=== PATIENT | female | born 2000 | race Caucasian/White ===

== ENCOUNTER → 2022-07-20 10:47 | Outpatient (CLI) | payer BC, SELFPAY ==
--- NOTE | 2022-07-20 11:01 | XR_ITS ---
FINAL REPORT CLINICAL HISTORY: RT KNEE PAIN..SHIELDED SURGERY 2014 FINDINGS: Three views of the right knee reveal no evidence of fracture or dislocation. Postoperative changes are present. The bony alignment is normal. The joint spaces are preserved. There is no evidence of joint effusion. No localized soft tissue abnormality is identified. IMPRESSION: No acute abnormality identified. Reviewed, Interpreted and Dictated by Misha Munson III, MD Transcribed by Saul Lemos Authenticated and [facility]
== END ==
PROVIDERS: PCP Nurse Practitioner Family; Visit Provider Nurse Practitioner Family
DX: M25.561 Pain in right knee (principal)
CPT/HCPCS: 73562

== ENCOUNTER → 2022-09-01 11:50 | Outpatient (CLI) | payer BC, SELFPAY ==
[2022-09-01 16:18] LABS: HCG,Quantitative 1428 mIU/ml (0-5.42)
[2022-09-03 12:10] LABS: Progesterone 14.4 ng/mL (.)
== END ==
PROVIDERS: PCP Nurse Practitioner Family; Visit Provider Obstetrics & Gynecology
DX: Z34.90 Encounter for supervision of normal pregnancy, unspecified, unspecified trimester (principal)
CPT/HCPCS: 36415; 84144; 84702

== ENCOUNTER 2022-09-15 17:30 | Outpatient (RCR) | payer BC, SELFPAY | END 2022-09-15 17:35 | disposition home or self-care (01) | LOC: PT 17:30 | PROVIDERS: PCP Nurse Practitioner Family; Visit Provider Nurse Practitioner Family | DX: M25.561 Pain in right knee (principal) | CPT/HCPCS: 97010; 97014; 97016; 97110; 97140; 97163; 97164; 97530; 97760; G0283 ==

== ENCOUNTER → 2022-09-27 15:15 | Outpatient (CLI) | payer BC, SELFPAY | PROVIDERS: Visit Provider Obstetrics & Gynecology | DX: Z34.91 Encounter for supervision of normal pregnancy, unspecified, first trimester (principal); Z3A.09 9 weeks gestation of pregnancy | CPT/HCPCS: 87086 ==

== ENCOUNTER → 2022-09-28 08:07 | Outpatient (CLI) | payer BC, SELFPAY ==
--- NOTE | 2022-09-28 08:11 | MR_ITS ---
FINAL REPORT CLINICAL HISTORY: PAIN OF RIGHT KNEE JOINT prior surgery in 2015. FINDINGS: Multi planar MR imaging was performed of the right knee. There is degradation of overall image quality secondary to extensive magnetic artifact from metallic instrumentation in the proximal tibia and distal femur. The anterior and posterior cruciate ligaments are intact. The quadriceps and patellar tendons are intact. The medial and lateral menisci are intact without evidence of tear. The medial and lateral collateral ligaments appear intact. The medial and lateral retinacula appear intact. There is narrowing of the patellofemoral joint space with degenerative subchondral cysts in the patella and the anterior aspect of the lateral femoral condyle compatible with moderate osteoarthritic change. No evidence of soft tissue inflammatory reaction. IMPRESSION: Significant artifact in the proximal tibia and distal femur from implanted metallic instrumentation. Narrowing of the patellofemoral joint space with degenerative subchondral cysts in the patella as well as the anterior aspect of the lateral femoral condyle. These findings are compatible with moderate osteoarthritis of the patellofemoral joint. Reviewed, Interpreted and Dictated by Ramu Higgins MD Transcribed by Ignacia Dominguez Authenticated and . [facility]
[2022-09-28 10:15] LABS: Basophils % 0.2 % (0.1-2.0); Eosinophils # 0.1 K/mm3 (0.0-0.4); Eosinophils % 0.7 % (0.1-12.0); Hematocrit 37.5 % (37.0-47.0); Hemoglobin 12.9 g/dL (12.2-16.2); Lymphocytes # 1.9 K/mm3 (0.7-4.5); Lymphocytes % 24.1 % (10-50); Mean Corpuscular HGB Conc 34.3 g/dL (31.8-35.4); Mean Corpuscular Hemoglobin 30.4 pg (27.0-31.2); Mean Corpuscular Volume 88.8 fl (81-99); Mean Platelet Volume 8.2 fl (7.4-10.4); Monocytes # 0.3 K/mm3 (0.1-1.0); Monocytes % 3.4 % (1.7-9.3); Neutrophils # 5.6 K/mm3 (1.8-7.8); Neutrophils % 71.6 % (37.0-80.0); Platelet Count 213 K/mm3 (142-424); Red Blood Count 4.23 M/mm3 (4.20-5.40); Red Cell Distribution Width 13.3 % (11.5-17.5); White Blood Count 7.8 K/mm3 (4.8-10.8)
[2022-09-29 11:55] LABS: Rapid Plasma Reagin Ab Titer Non Reactive (NonRea<1:1); Rubella Antibodies, IgG 9.81 index (Immune >0.99)
[2022-10-27 23:40] LABS: HIV Screen 4th Generation wRfx Non Reactive; Hepatitis B Surface Antigen Negative; Hepatitis C Antibody Non Reactive
== END ==
PROVIDERS: Obstetrics & Gynecology; PCP Nurse Practitioner Family; Visit Provider Nurse Practitioner Family
DX: Z34.91 Encounter for supervision of normal pregnancy, unspecified, first trimester (principal); Z3A.09 9 weeks gestation of pregnancy; M25.561 Pain in right knee
CPT/HCPCS: 36415; 73721; 85025; 86593; 86703; 86762; 86850; 87340; 87380; G0432

== ENCOUNTER 2022-12-10 10:44 | Outpatient (RCR) | payer BC, SELFPAY | END 2022-12-10 10:50 | disposition home or self-care (01) | LOC: PT 10:44 | PROVIDERS: PCP Nurse Practitioner Family; Visit Provider Nurse Practitioner Family | DX: M25.561 Pain in right knee (principal) | CPT/HCPCS: 97110; 97140; 97163 ==

== ENCOUNTER → 2022-12-16 13:57 | Outpatient (CLI) | payer BC, SELFPAY ==
--- NOTE | 2022-12-16 13:57 | US_ITS ---
PROCEDURE: US OB /MATERNAL DETAIL CLINICAL INDICATION: 20 week anatomy scan COMPARISON: No exams were available for comparison FINDINGS: Transabdominal sonographic images of the uterus were obtained. From her established due date she is 20 weeks 1 day. Single viable intrauterine gestation. Cephalic position. Placenta: Anteriorplacenta grade 1. There is average amount fluid. The cervix appears satisfactory. Closed and measuring 3.5 cm in length. Complete survey performed and was unremarkable on the submitted images as in PACS. No discrete anomalies identified on survey imaging by technologist. Active fetus. Three-vessel cord with satisfactory umbilical cord insertion. 4- chamber heart noted. [place], LVOT, RVOT, aortic arch appear normal. Survey of brain & ventricles Unremarkable. Cerebellum, thalamus, choroid plexus, cisterna magna appear normal. Face and neck survey unremarkable. Profile, nasion, lips and nose appeared normal. Diaphragm and chest views unremarkable. Abdomen: Both kidneys noted and unremarkable. Stomach and bladder noted and satisfactory. Spine: Survey of the spine satisfactory with no anomalies identified nor imaged. Upper, thoracic, lower spine appear normal. Both arms and legs noted. Amniotic Fluid: Adequate. Measurements: Average ultrasound age 20weeks 2days. Estimated due date by ultrasound age 0105/03/2023. Estimated weight 344g BPD = 20weeks 1day HC = 20weeks 2days AC = 20weeks 1day FL = 20weeks 4days Growth Percentile= 53 Heart Rate = 146bpm Cerebellum = 19weeks 4days Humerus = 21weeks 1day HC/AC is 1.2 FL/BPD is 0.72 FL/AC is 0.23 IMPRESSION: 1. Viable fetus in the cephalic presentation with an anterior placenta grade 1. 2. The fluid is within normal limits. 3. Anatomical scan appears normal. 4. Size and dates are congruent. Dictated by: Jaron Lee MD 12/16/2022 19:37 Jaron Lee MD in [place] 12/16/2022 19:37
== END ==
PROVIDERS: PCP Nurse Practitioner Family; Visit Provider Obstetrics & Gynecology
DX: Z34.92 Encounter for supervision of normal pregnancy, unspecified, second trimester (principal); Z3A.20 20 weeks gestation of pregnancy
CPT/HCPCS: 76811

== ENCOUNTER → 2023-01-27 08:11 | Outpatient (CLI) | payer BC, SELFPAY ==
[2023-01-27 08:31] LABS: Basophils % 0.3 % (0.1-2.0); Eosinophils % 0.7 % (0.1-12.0); Hematocrit 31.9 % (37.0-47.0); Hemoglobin 11.6 g/dL (12.2-16.2); Lymphocytes # 1.5 K/mm3 (0.7-4.5); Lymphocytes % 24.7 % (10-50); Mean Corpuscular HGB Conc 36.4 g/dL (31.8-35.4); Mean Corpuscular Hemoglobin 33.8 pg (27.0-31.2); Mean Platelet Volume 8.8 fl (7.4-10.4); Monocytes # 0.2 K/mm3 (0.1-1.0); Monocytes % 3.7 % (1.7-9.3); Neutrophils # 4.2 K/mm3 (1.8-7.8); Neutrophils % 70.5 % (37.0-80.0); Platelet Count 181 K/mm3 (142-424); Red Blood Count 3.43 M/mm3 (4.20-5.40); Red Cell Distribution Width 12.6 % (11.5-17.5)
[2023-01-27 08:52] LABS: Glucose,Fasting 82 mg/dl (74-100)
[2023-01-27 10:33] LABS: Glucose 1 Hour 363 mg/dL (74-100)
== END ==
PROVIDERS: PCP Nurse Practitioner Family; Visit Provider Obstetrics & Gynecology
DX: Z34.92 Encounter for supervision of normal pregnancy, unspecified, second trimester (principal); Z3A.26 26 weeks gestation of pregnancy
CPT/HCPCS: 36415; 82951; 85025

== ENCOUNTER → 2023-01-31 08:33 | Outpatient (CLI) | payer BC, SELFPAY | PROVIDERS: PCP Nurse Practitioner Family; Visit Provider Obstetrics & Gynecology | DX: Z34.92 Encounter for supervision of normal pregnancy, unspecified, second trimester (principal); Z3A.26 26 weeks gestation of pregnancy | CPT/HCPCS: 36415 ==

== ENCOUNTER → 2023-04-08 18:34 | Outpatient (CLI) | payer BC, SELFPAY | LOC: LAB.DROPOF 18:35 | PROVIDERS: PCP Nurse Practitioner Family; Visit Provider Obstetrics & Gynecology | DX: Z34.93 Encounter for supervision of normal pregnancy, unspecified, third trimester (principal); Z3A.36 36 weeks gestation of pregnancy | CPT/HCPCS: 86403 ==

== ENCOUNTER 2023-04-27 06:49 | Inpatient (IN) | payer BC, SELFPAY ==
[2023-04-27 06:18] VITALS: BMI 29.0
[2023-04-27 06:27] LABS: Microscopic, Urine URINE MICROSCOPIC (MICROSCOPIC)
[2023-04-27 06:30] LABS: Appearance,Urine CLEAR (Clear); Bilirubin,Urine Negative (Negative); Blood, Urine Negative (Negative); Color,Urine YELLOW (Yellow); Glucose,Urine (UA) Negative (Negative); Ketones,Urine Negative (Negative); Leukocyte Esterase,Urine Negative (Negative); Nitrate,Urine Negative (Negative); PH,Urine 6.5 (5.0-8.5); Protein,Urine Negative (Negative); Specific Gravity, Urine 1.015 (1.005-1.030); Urobilinogen,Urine 0.2 EU/dl (0.2)
[2023-04-27 06:56] LABS: Basophils # 0.1 K/mm3 (0-0.2); Basophils % 0.5 % (0.1-2.0); Eosinophils # 0.1 K/mm3 (0.0-0.4); Hematocrit 37.3 % (37.0-47.0); Hemoglobin 12.7 g/dL (12.2-16.2); Lymphocytes # 2.8 K/mm3 (0.7-4.5); Lymphocytes % 29.4 % (10-50); Mean Corpuscular HGB Conc 34.1 g/dL (31.8-35.4); Mean Corpuscular Hemoglobin 30.4 pg (27.0-31.2); Mean Corpuscular Volume 89.2 fl (81-99); Monocytes # 0.5 K/mm3 (0.1-1.0); Monocytes % 4.7 % (1.7-9.3); Neutrophils # 6.2 K/mm3 (1.8-7.8); Neutrophils % 64.6 % (37.0-80.0); Platelet Count 253 K/mm3 (142-424); Red Blood Count 4.18 M/mm3 (4.20-5.40); Red Cell Distribution Width 13.5 % (11.5-17.5); White Blood Count 9.7 K/mm3 (4.8-10.8)
[2023-04-27] MEDS: LACTATED RINGERS 1000ML 1,000 ML 999 ML IV (07:01)
[2023-04-27 07:14] LABS: Bacteria,Urine 1+ /lpf; Mucus,Urine Trace /lpf; RBC,Urine Occasional #/hpf (0-3)
--- NOTE | 2023-04-27 07:21 | P.CONPHA_ITS ---
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 -TANYA PARRAD
--- NOTE | 2023-04-27 07:21 | HMH.PHAINT1 ---
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 -TANYA PARRAD
[2023-04-27 07:23] VITALS: BP 144/84; PULSE 90; RESP 18; TEMP 36.7; O2SAT 100; BMI 29.0
--- NOTE | 2023-04-27 07:48 | P.PNANES_ITS ---
[facility] Disclaimer: The information contained in this section may have been updated after the patient was seen, as this information can be updated by other users. Medical History Anxiety and depression Constipation during , antepartum Heartburn during Hemorrhoids during Nausea and vomiting during Screening for genetic disease carrier status 10/28/22 Horizon carrier screen negative for 14 conditions tested including CF, Fragile X and SMA Varicose veins during Surgical History History of right knee surgery Family History Other Anemia Asthma Cancer Diabetes FHx: mental illness Heart attack Hyperlipidemia Hypertension Kidney disease Social History Smoking Status: Never smoker alcohol intake: never substance use type: denies use current occupational status: employed Travel in the last 8 weeks: None [facility] Anesthesia Checklist Patient Identification Patient Identification: Arm Band Structural Data Admitted From: Inpatient Planned Operative Procedure/s: Labor Epidural Consent for Planned Operative Procedure(s) Verified: Yes Verified Documents: Surgical Consent and History and Physical Additional verifications Anesthesia Reactions: No Neurological Assessment Level of Consciousness: Awake and Alert Anesthesia Plan Anesthesia Risk discussed: Yes Anesthesia Plan: Verified ASA Class: II Anesthesia Type: Epidural
--- NOTE | 2023-04-27 08:19 | EXP.OB.APHP ---
OB - H&P: HPI Antepartum History of Present Illness Chief complaint: Painful contractions History of present illness: Mrs Francisca Vera is a very pleasant 22 yo at 39w0d who presents to Labor and Delivery with complaint of regular, painful contractions. She states last night at dinner she noticed tail bone pain but thought she needed to have a BM. She has been taking Colace for constipation. Around 0300 this morning she woke up with increased pain in her tail bone followed by regular contractions. No vaginal bleeding. Baby is active. She admits to possible leakage of fluid. She states she feels more wet. She has had good care. History of Present Criteria for establishing EDC:: LMP confirmed by 1st trimester US care: good care Ultrasounds: normal mid trimester US Obstetrical complications: none Medical complications: none Labs Blood type: O (+) positive Rubella: immune RPR/VDRL: nonreactive GBS status: negative HBsAG: negative PFSH PFSH Disclaimer: The information contained in this section may have been updated after the patient was seen, as this information can be updated by other users. Medical History (Updated 04/27/23 @ 08:28 by Umu Contreras DO) 39 weeks gestation of Active labor Anxiety and depression Constipation during , antepartum Heartburn during Hemorrhoids during Nausea and vomiting during Screening for genetic disease carrier status Varicose veins during Surgical History History of right knee surgery Family History Other Anemia Asthma Cancer Diabetes FHx: mental illness Heart attack Hyperlipidemia Hypertension Kidney disease Social History Smoking Status: Never smoker alcohol intake: never substance use type: denies use current occupational status: employed Travel in the last 8 weeks: None Review of Systems Review of Systems Review of systems:: pertinent systems reviewed and negative unless documented below *Genitourinary Comments: + painful, regular contractions Meds Home Medications and Allergies Home Medications Medication Instructions Recorded Confirmed Type vitamin 1 tab PO DAILY Supplement 09/27/22 04/27/23 History no.76-iron,carbonyl 29 mg iron-folic acid 1 mg tablet (Prenatabs Rx) docusate sodium 100 mg capsule 100 mg PO DAILY Constipation 04/21/23 04/27/23 History (Colace) famotidine 20 mg tablet 20 mg PO BID Acid Reflux 04/27/23 04/27/23 History New Prescriptions to Start Prescriptions: Allergies Allergy/AdvReac Type Severity Reaction Status Date / Time No Known Allergies Allergy Verified 04/21/23 13:08 OB - H&P: Exam Physical Exam Vital signs: Temp Pulse Resp BP Pulse Ox O2 Del Method 98.0 F 90 18 144/84 H 100 Room Air 04/27/23 07:23 04/27/23 07:23 04/27/23 07:23 04/27/23 07:23 04/27/23 07:23 04/27/23 07:23 Constitutional no acute distress and cooperative Routine HEENT Exam Head: Present normocephalic Eye: Absent conjunctivae pink ENT: Present mucous membranes moist and dentition normal Routine Neck Exam Present full ROM Routine Respiratory Exam Present CTA bilaterally and normal respiratory effort Routine Cardiovascular Exam Present RRR Routine Abdominal Exam Present soft (Gravid); Absent tenderness Routine Rectal Exam Patient deferred: visual exam Routine Exam External: Present normal urethra appearance; Absent erythema, tenderness, lesions, lacerations or vulvar tenderness Routine Extremities Exam Present edema (+1 bilateral lower extremity edema) and full ROM; Absent calf tenderness Routine Neurological Exam Present alert, oriented X3, moving all extremities and normal speech Routine Psychiatric Exam Present normal affect and cooperative Detailed Labor and Delivery Exam Dilation (cm): 5 Effacement (%): 80 Cervix position: mid station: -2 Consistency: soft Membranes: artificially ruptured Amniotic fluid: clear Baseline heart rate: 150 monitor accelerations: Present monitor decelerations: None FDC variability: Moderate (11-25) Contraction frequency (min): 2 OB - Results Labs Labs: Short CBC 04/27/23 Range/Units 06:40 WBC 9.7 (4.8-10.8) K/mm3 Hgb 12.7 (12.2-16.2) g/dL Hct 37.3 (37.0-47.0) % Plt Count 253 (142-424) K/mm3 Urine 04/27/23 Range/Units 06:22 Urine Color Yellow (Yellow) Urine Appearance Clear (Clear) Urine pH 6.5 (5.0-8.5) Ur Specific [place] 1.015 (1.005-1.030) Urine Protein Negative (Negative) Urine Glucose (UA) Negative (Negative) OB - A/P Antepartum (1) 39 weeks gestation of : Status: Acute (2) Active labor: Status: Acute (3) Constipation during , antepartum: Status: Acute (4) Heartburn during : Status: Acute (5) Varicose veins during : Status: Acute Additional Plan Planning to breastfeed?: Yes Additional Information:: Admit to [facility] for active labor. GBS negative Close monitoring Anticipate
[2023-04-27] MEDS: OXYTOCIN/RINGERS LACTATE 30 UNITS/500 ML BAG 40 UNITS IV (09:33)
[2023-04-27 09:49] LABS: Amphetamine/Metha Screen,Urine Negative ng/ml (<1000)
[2023-04-27 09:50] LABS: Barbiturates Screen,Urine Negative ng/ml (<200)
[2023-04-27 09:51] LABS: Benzodiazepines Screen,Urine Negative ng/ml (<200); Cannabinoid Screen,Urine Negative ng/ml (<50)
[2023-04-27 09:52] LABS: Cocaine Screen,Urine Negative ng/ml (<300)
[2023-04-27 09:53] LABS: Methadone Screen,Urine Negative ng/ml (<300); Opiate Screen,Urine Negative ng/ml (<300)
[2023-04-27 09:54] LABS: Phencyclidine Screen,Urine Negative ng/ml (<25)
--- NOTE | 2023-04-27 10:16 | EXP.DN ---
Delivery Note Delivery Date:: 04/27/23 Delivery Time:: 09:28 Anesthesia Type: Epidural Was labor medically induced?: No Induction method: none Gestational age (weeks): 39 Infant delivered prior to 39 weeks?: No Justification for early elective delivery:: Active Labor Gender: Female at 1 minute: 9 at 5 minutes: 9 Delivery Procedure:: Mom complete with epidural. Pushed for approximately 11 minutes. Head delivered spontaneously over intact perineum in TEREZA position. Nuchal cord x 1 and body cord. Anterior shoulder delivered with gentle downward pressure. Posterior shoulder and remainder of body delivered spontaneously. Baby placed on maternal abdomen, mouth and nares bulb suctioned, warmed/dried and stimulated. Delayed cord clamping was performed for 60 seconds. Cord was clamped and cut by father of baby. Cord blood was obtained. Placenta delivered spontaneously and intact. No lacerations. Mom and baby were skin to skin and doing well after delivery. Live female baby (baby's name is Charley) APGARs 9 (1 min), 9 (5 min) EBL 100 mL Placental Delivery Description: Spontaneous
[2023-04-27] MEDS: ACETAMINOPHEN 500MG TAB 1000 MG PO ×2 (13:16→18:35)
[2023-04-27] MEDS: PRENATAL MULTIVITAMIN W/IRON 1 EACH PO (17:51)
[2023-04-28] MEDS: ALUMINUM/MAGNESIUM/SIMETHICONE 30ML UDC 30 ML PO (04:03)
[2023-04-28 06:28] LABS: Basophils % 0.3 % (0.1-2.0); Eosinophils # 0.1 K/mm3 (0.0-0.4); Eosinophils % 1.2 % (0.1-12.0); Hematocrit 33.7 % (37.0-47.0); Hemoglobin 11.7 g/dL (12.2-16.2); Lymphocytes # 2.9 K/mm3 (0.7-4.5); Lymphocytes % 29.4 % (10-50); Mean Corpuscular HGB Conc 34.7 g/dL (31.8-35.4); Mean Corpuscular Hemoglobin 31.1 pg (27.0-31.2); Mean Corpuscular Volume 89.6 fl (81-99); Mean Platelet Volume 8.7 fl (7.4-10.4); Monocytes # 0.4 K/mm3 (0.1-1.0); Monocytes % 3.8 % (1.7-9.3); Neutrophils # 6.5 K/mm3 (1.8-7.8); Neutrophils % 65.4 % (37.0-80.0); Platelet Count 215 K/mm3 (142-424); Red Blood Count 3.76 M/mm3 (4.20-5.40); Red Cell Distribution Width 13.4 % (11.5-17.5); White Blood Count 9.9 K/mm3 (4.8-10.8)
[2023-04-28] MEDS: ACETAMINOPHEN 500MG TAB 1000 MG PO (08:04)
[2023-04-28 08:08] VITALS: BP 117/64; PULSE 90; RESP 16; TEMP 36.5; O2SAT 98
--- NOTE | 2023-04-28 08:48 | EXP.DC.SUM ---
General Admission date:: 04/27/23 Discharge date: 04/28/23 HPI HPI HPI: PPD # 1 s/p Doing well. Pain controlled. Lochia appropriate. Breast feeding. Voiding without difficulty and passing flatus. Tolerating regular diet. Denies fever/chills, chest pain and shortness of breath. No headaches, dizziness or lightheadedness. Admits to bilateral lower extremity swelling. No calf tenderness. Ambulating well ad pasquale. Hospital Course Hospital Course Hospital Course: Mrs Francisca Vera is a very pleasant 22 yo at 39w0d admitted to Labor and Delivery for active labor. Around 0300 on 04/27/23 she woke up with increased pain in her tail bone followed by regular contractions. No vaginal bleeding. She had good care. GBS negative. She had a normal spontaneous vaginal delivery on 04/27/23 at 0928. She delivered a live female baby, Charley, weighing 8 lb 5 oz. APGARs 9 (1 min), 9 (5 min). EBL 100 mL. She did well . Pain controlled. Lochia appropriate. Breast feeding. Voiding without difficulty and passing flatus. Tolerating regular diet. Denied fever/chills, chest pain and shortness of breath. No headaches, dizziness or lightheadedness. Admits to bilateral lower extremity swelling. No calf tenderness. Vital signs stable, afebrile. Heart regular rate and rhythm. Lungs clear to auscultation. Abdomen soft, nontender. Trace bilateral lower extremity edema. No calf tenderness. Ambulating well ad pasquale. Discharged to home on PPD # 1 with instructions to follow-up in the office in 2 weeks. Exam Data for Last 24 hours Vital signs and Labs for Last 24 Hours: Temp Pulse Resp BP Pulse Ox O2 Del Method 98.0 F 90 18 144/84 H 100 Room Air 04/27/23 07:23 04/27/23 07:23 04/27/23 07:23 04/27/23 07:23 04/27/23 07:23 04/27/23 07:23 Laboratory Results - last 24 hr 04/27/23 06:22: Urine Opiates Screen Negative, Urine Methadone Screen Negative, Ur Barbituates Screen Negative, Ur Phencyclidine Scrn Negative, Ur Amphetamines Screen Negative, U Benzodiazepines Scrn Negative, Urine Cocaine Screen Negative, U Marijuana (THC) Screen Negative 04/28/23 05:10: WBC 9.9, RBC 3.76 L, Hgb 11.7 L, Hct 33.7 L, MCV 89.6, MCH 31.1, MCHC 34.7, RDW 13.4, Plt Count 215, MPV 8.7, Neut % (Auto) 65.4, Lymph % (Auto) 29.4, [place] % (Auto) 3.8, Eos % (Auto) 1.2, Baso % (Auto) 0.3, Neut # (Auto) 6.5, Lymph # (Auto) 2.9, [place] # (Auto) 0.4, Eos # (Auto) 0.1, Baso # (Auto) 0.0 I & O for Last 24 hours: Intake & Output 04/25/23 04/26/23 04/27/23 04/28/23 23:59 23:59 23:59 23:59 Weight 185 lb 0.014 oz Constitutional Constitutional: no acute distress and cooperative *Routine HEENT Exam Head: Present normocephalic and atraumatic Eye: Absent conjunctivae pink ENT: Present mucous membranes moist *Routine Neck Exam Neck: Present full ROM *Routine Respiratory Exam Respiratory: Present CTA bilaterally and normal respiratory effort *Routine Cardiovascular Exam Cardiovascular: Present RRR *Routine Abdominal Exam Abdominal: Present soft; Absent tenderness or distended Comments: Uterine fundus firm and below umbilicus *Routine Rectal Exam Patient deferred: visual exam *Routine Exam Patient deferred: external exam *Routine Extremities Exam Extremities: Present edema (trace bilateral lower extremity edema) and full ROM; Absent calf tenderness *Routine Neurological Exam Neurological: Present alert, moving all extremities and normal speech Routine Psychiatric Exam Psychiatric: Present normal affect and cooperative Results Data Completed and Pending Labs on day of discharge: Labs from last 24 hours 04/28/23 04/27/23 05:10 06:22 WBC 9.9 RBC 3.76 L Hgb 11.7 L Hct 33.7 L MCV 89.6 MCH 31.1 MCHC 34.7 RDW 13.4 Plt Count 215 MPV 8.7 Neut % (Auto) 65.4 Lymph % (Auto) 29.4 [place] % (Auto) 3.8 Eos % (Auto) 1.2 Baso % (Auto) 0.3 Neut # (Auto) 6.5 Lymph # (Auto) 2.9 [place] # (Auto) 0.4 Eos # (Auto) 0.1 Baso # (Auto) 0.0 Urine Opiates Screen Negative Urine Methadone Screen Negative Ur Barbituates Screen Negative Ur Phencyclidine Scrn Negative Ur Amphetamines Screen Negative U Benzodiazepines Scrn Negative Urine Cocaine Screen Negative U Marijuana (THC) Screen Negative DS: Diagnosis Discharge Diagnosis (1) 39 weeks gestation of : Status: Acute Code(s): Z3A.39 - 39 weeks gestation of (2) Active labor: Status: Acute (3) Constipation during , antepartum: Status: Acute Code(s): O99.619 - Diseases of the digestive system complicating , unspecified trimester; K59.00 - Constipation, unspecified (4) Heartburn during : Status: Acute Code(s): O26.899 - Other specified related conditions, unspecified trimester; R12 - Heartburn (5) Varicose veins during : Status: Acute Code(s): O22.00 - Varicose veins of lower extremity in , unspecified trimester Meds Home Medications and Allergies Home Medications Medication Instructions Recorded Confirmed Type vitamin 1 tab PO DAILY Supplement 09/27/22 04/27/23 History no.76-iron,carbonyl 29 mg iron-folic acid 1 mg tablet (Prenatabs Rx) docusate sodium 100 mg capsule 100 mg PO DAILY Constipation 04/21/23 04/27/23 History (Colace) famotidine 20 mg tablet 20 mg PO BID Acid Reflux 04/27/23 04/27/23 History ibuprofen 800 mg tablet 800 mg PO Q8H PRN pain #20 tabs 04/28/23 Rx New Prescriptions to Start Prescriptions: ibuprofen Umu Contreras Allergies Allergy/AdvReac Type Severity Reaction Status Date / Time No Known Allergies Allergy Verified 04/21/23 13:08 Discharge Plan Disposition Patient Disposition: Home, Self-Care Condition: Good Discharge Order Discharge Orders: Discharge Order (Routine); Ordered 04/28/23 Ordered By: Umu Contreras Follow up Plan Follow up with: Umu Contreras DO [Staff Physician] - 05/11/23 10:30 am Prescriptions/Medication Reconciliation: New ibuprofen 800 mg tablet 800 mg PO Q8H PRN (Reason: pain) Qty: 20 0RF Continued Prenatabs Rx 29 mg iron- 1 mg tablet 1 tab PO DAILY Patient Comments: TAKE ONE (1) TABLET BY MOUTH EVERY DAY docusate sodium [Colace] 100 mg capsule 100 mg PO DAILY famotidine 20 mg tablet 20 mg PO BID Problem Reconciliation Problems Reviewed?: Yes Patient Discharge Instructions ACTIVITY: Limited activity DIET: continue same diet and regular diet Additional Instructions: Discharge: 1. Take 800 mg Ibuprofen every 8 hours as needed for pain. You can also take 500-1000 mg of Tylenol in between doses, every 6-8 hours. 2. Nothing in the vagina for 6 weeks - no intercourse, douching or tampons. No tub baths/hot tubs or swimming pools 3. Reasons to return to L&D or call On-Call doctor - fever (greater than 100.4) - heavy vaginal bleeding (soaking through 1 pad in less than 2 hours) - vaginal discharge (malodorous and/or purulent) - severe headaches not resolved by medication or rest and leg tenderness/edema 4. depression/blues - Normal to feel anxious/overwhelmed for first 2 weeks - Talk to your doctor if: severe anxiety, trouble bonding with baby, withdrawing from other family members, thoughts of harming yourself or others Umu Contreras DO [facility] [phone] Patient Instructions: Depression, Hemorrhage, DI for Labor and Delivery, Vaginal , DI for Pre-eclampsia, [facility] Post Discharge Instructions Providers Primary Care Provider: Toro Pires Admit Provider: Jaron Lee Attending Provider: Jaron Lee
[2023-04-28] MEDS: LANOLIN CREAM 40GM TP (13:58)
== END 2023-04-28 14:20 | disposition home or self-care (01) | DRG 807 ==
LOC: OBOUT 06:49 → OB 06:49
PROVIDERS: Obstetrics & Gynecology; Admitting Provider Nurse Practitioner Obstetrics & Gynecology; PCP Nurse Practitioner Family; Visit Provider Nurse Practitioner Obstetrics & Gynecology
DX: O69.9XX0 Labor and delivery complicated by cord complication, unspecified, not applicable or unspecified (principal); Z37.0 Single live birth; Z3A.39 39 weeks gestation of pregnancy; O99.62 Diseases of the digestive system complicating childbirth; K59.00 Constipation, unspecified
CPT/HCPCS: 59409; 36415; 59025; 80307; 81001; 85025; 86850; 94761; G0283